=== PATIENT | male | born 1990 | race Two or more races ===

== ENCOUNTER 2021-10-18 15:07 | Inpatient (IN) | payer OTHER ==
[2021-10-18 17:44] VITALS: BMI 28.4
[2021-10-18] MEDS ORDERED: BISMUTH SUBSALICYLATE 524 MG/30 ML PO PRN (21:07)
[2021-10-18] MEDS ORDERED: P-EPHED 60MG/TRIPROLIDI 2.5MG TABLET PO PRN (21:07)
[2021-10-18] MEDS ORDERED: methaDONE HCL 10 MG TABLET (FOR DETOX USE ONLY) PO ONE (21:07)
[2021-10-18] MEDS ORDERED: NALOXONE HCL 0.4 MG/ML VIAL IM PRN (21:07)
[2021-10-18] MEDS ORDERED: PROCHLORPERAZINE MALEATE 5 MG TABLET PO PRN (21:07)
[2021-10-18] MEDS ORDERED: DICYCLOMINE HCL 10 MG CAPSULE PO PRN (21:07)
[2021-10-18] MEDS ORDERED: LOPERAMIDE HCL 2 MG CAPSULE PO PRN (21:07)
[2021-10-18] MEDS ORDERED: MAGNESIUM HYDROX 2400MG/30ML ORAL SUSPENSION 30 ML CUP PO PRN (21:07)
[2021-10-18] MEDS ORDERED: ACETAMINOPHEN 325 MG TABLET (FP) PO PRN (21:07)
[2021-10-18] MEDS ORDERED: MAG HYDROX/AL HYDROX/SIMETH 30 ML UNIT-DOSE CUP PO PRN (21:07)
[2021-10-18] MEDS ORDERED: MAGNESIUM CITRATE 300 ML BOTTLE PO PRN (21:07)
[2021-10-18] MEDS ORDERED: BENZOCAINE/MENTHOL (CHLORASEPTIC ) LOZENGE MM PRN (21:07)
[2021-10-18] MEDS ORDERED: NICOTINE POLACRILEX 2 MG GUM BUC PRN (21:07)
[2021-10-18] MEDS: MELATONIN 5 MG TABLETS PO SCH (23:43)
[2021-10-18] MEDS: THIAMINE HCL 100 MG TABLET (FP) PO SCH (23:43)
[2021-10-18] MEDS: METHOCARBAMOL 500 MG TABLET PO PRN (23:43)
[2021-10-19] MEDS ORDERED: methaDONE HCL 10 MG TABLET (FOR DETOX USE ONLY) ONE (09:05)
[2021-10-19] MEDS: METHOCARBAMOL 500 MG TABLET PO PRN (09:19)
[2021-10-19] MEDS: cloNIDine HCL 0.1 MG TABLET PO PRN ×2 (09:19→17:47)
[2021-10-19] MEDS: NICOTINE 14 MG/24 HOURS TOPICAL PATCH TD SCH (10:22)
[2021-10-19] MEDS: PRENATAL VITAMINS W/ FOLIC ACID TABLET (FP) PO SCH (10:22)
[2021-10-19] MEDS: clonazePAM 0.5 MG ODT TABLETS SL PRN ×2 (11:17→17:47)
[2021-10-19 13:25] LABS: ALBUMIN 3.7 g/dl (3.4-5.0)
[2021-10-19 13:26] LABS: BLOOD UREA NITROGEN 6.9 mg/dL (7-18)
[2021-10-19 13:27] LABS: TOT PROT 6.6 g/dl (6.4-8.2)
[2021-10-19 13:29] LABS: BILIRUBIN,TOTAL 1.5 mg/dL (0.2-1); CALCIUM 9.1 mg/dL (8.5-10.1)
[2021-10-19 13:31] LABS: HEMATOCRIT 42.1 % (35.4-49); HEMOGLOBIN 13.9 GM/dL (11.7-16.9); MCH 30.7 pg (25.7-33.7); MEAN CELL VOLUME 93.1 fl (80-96); PLATELET COUNT 192 10^3/uL (134-434); RBC 4.53 M/mm3 (4.00-5.60); RDW 12.6 % (11.9-15.9); WHITE BLOOD COUNT 8.2 K/mm3 (4.0-10.0)
[2021-10-19] MEDS ORDERED: POTASSIUM CHLORIDE TABS 20 MEQ TABLET.ER (FP) PO ONE ×2 (14:58→22:00)
[2021-10-19] MEDS: IBUPROFEN 400 MG TABLET (FP) PO PRN (17:47)
[2021-10-19] MEDS: MELATONIN 5 MG TABLETS PO SCH (22:50)
[2021-10-19] MEDS: THIAMINE HCL 100 MG TABLET (FP) PO SCH (22:50)
[2021-10-20] MEDS: cloNIDine HCL 0.1 MG TABLET PO PRN ×2 (06:23→13:16)
[2021-10-20] MEDS: METHOCARBAMOL 500 MG TABLET PO PRN ×3 (06:24→18:11)
[2021-10-20] MEDS: PRENATAL VITAMINS W/ FOLIC ACID TABLET (FP) PO SCH (09:37)
[2021-10-20] MEDS: clonazePAM 0.5 MG ODT TABLETS SL PRN ×2 (09:37→21:13)
[2021-10-20] MEDS: NICOTINE 14 MG/24 HOURS TOPICAL PATCH TD SCH (09:39)
[2021-10-20] MEDS ORDERED: methaDONE HCL 10 MG TABLET (FOR DETOX USE ONLY) PO ONE (10:00)
[2021-10-20] MEDS: IBUPROFEN 400 MG TABLET (FP) PO PRN (13:16)
[2021-10-20] MEDS: ACETAMINOPHEN 325 MG TABLET (FP) PO PRN ×2 (14:42→21:12)
[2021-10-20 16:07] LABS: SARS-CoV-2 NAA Not Detected (Not Detected)
[2021-10-20] MEDS: THIAMINE HCL 100 MG TABLET (FP) PO SCH (21:13)
[2021-10-20] MEDS ORDERED: SUVOREXANT 10 MG TABLET PO PRN (22:00)
[2021-10-21] MEDS: METHOCARBAMOL 500 MG TABLET PO PRN ×3 (05:45→17:38)
[2021-10-21] MEDS: clonazePAM 0.5 MG ODT TABLETS SL PRN ×2 (05:47→13:10)
[2021-10-21] MEDS ORDERED: methaDONE HCL 10 MG TABLET (FOR DETOX USE ONLY) ONE (08:38)
[2021-10-21] MEDS: PRENATAL VITAMINS W/ FOLIC ACID TABLET (FP) PO SCH (09:21)
[2021-10-21] MEDS: NICOTINE 14 MG/24 HOURS TOPICAL PATCH TD SCH (09:22)
[2021-10-21] MEDS: IBUPROFEN 400 MG TABLET (FP) PO PRN (15:52)
[2021-10-21 21:19] VITALS: BP 119/78; PULSE 79; TEMP 97.3
[2021-10-21] MEDS: THIAMINE HCL 100 MG TABLET (FP) PO SCH (22:13)
[2021-10-22] MEDS: IBUPROFEN 400 MG TABLET (FP) PO PRN (00:38)
[2021-10-22] MEDS ORDERED: methaDONE HCL 10 MG TABLET (FOR DETOX USE ONLY) PO ONE (10:00)
== END 2021-10-22 01:12 | disposition left against medical advice (07) | DRG 770 ==
LOC: YASAS 15:07 → Y3N 21:47 → UNDOADMIN 21:47 → Y6N 22:53
PROVIDERS: ADMIT Allergy & Immunology; ATTEND Allergy & Immunology
PROC: HZ2ZZZZ Detoxification Services for Substance Abuse Treatment (ICD-10-PCS; principal; 2021-10-18)
DX: F11.23 Opioid dependence with withdrawal (principal); F17.210 Nicotine dependence, cigarettes, uncomplicated; F19.282 Other psychoactive substance dependence with psychoactive substance-induced sleep disorder; E87.6 Hypokalemia; J45.20 Mild intermittent asthma, uncomplicated; R63.8 Other symptoms and signs concerning food and fluid intake; Z56.0 Unemployment, unspecified
CPT/HCPCS: 36415; 80053; 84132; 85027; 86780; 93005; 93010; C9803-CS; J0735; U0003; U0005